=== PATIENT | female | born 1985 | race Caucasian/White ===

== ENCOUNTER → 2019-08-10 | Outpatient (CLI) | payer OTHER ==
--- NOTE | 2019-08-10 13:43 | ER RDC ASSESSMENT REPORT ---
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 - Symptoms Subjective Fever([place] feverish): Yes --How many day(s)?: couple days Chills: Yes Muscule Aches: Yes Runny Nose: Yes Sore Throat: Yes Cough (New or worsening chronic cough): Yes --How many day(s)?: couple days now productive green Shortness of breath: Yes Nausea or Vomiting: Yes Headache: Yes Abdominal Pain: No Diarrhea(3 or more loose stools in last 24 hours): No - Do you have any of the following Chronic lung disease: Asthma or emphysema or COPD: Yes Cystic Fibrosis: No Diabetes: No High Blood Pressure: No Cardiovascular Disease: No Chronic Kidney Disease: No Chronic Liver Disease: No Chronic blood disorder like Sickle Cell Disease: No Weak immune system due to disease or medication: No Neurologic condition that limits movement: No Developmental delay - Moderate to Severe: No Recent (within past 2 weeks) or current : No Morbid Obesity (>100 pounds over ideal weight): No - Objective Temperature: 97.1 F Pulse Rate: 106 Blood Pressure: 109/67 O2 Sat by Pulse Oximetry: 98 Objective: Given above, testing performed: If Testing Performed: Test Specimen Type Sent to Disposition: Home; Selfcare General - General Chief Complaint: Shortness Of Breath Stated Complaint: sore throat cough Time Seen by Provider: 08/10/19 13:46 Information source: Patient Notes: The patient 33-year-old female was evaluated during the global Covid 19 pandemic, and that diagnosis was suspected/considered upon their initial presentation. Their evaluation, treatment and testing was consistent with current guidelines for patients who present with complaints or symptoms that may be related to Covid 19. She complains of shortness of breath subjective fever with chills body aches runny nose sore throat cough congestion's and nausea no vomiting - HPI Onset: Other Onset/Duration: Gradual - 4 days Quality of pain: Achy Severity: Mild Pain Level: 1 Associated symptoms: Body/muscle aches, Chills, Productive cough, Fever, Headache, Rhinnorhea, Shortness of breath, Sore throat Exacerbated by: Coughing Relieved by: Denies Similar symptoms previously: Yes Recently seen / treated by doctor: No - Vital Signs Blood Pressure: 109/67 Temperature: 97.1 F Pulse Rate: 106 O2 Sat by Pulse Oximetry: 98 Past Medical History - General Information source: Patient - Social History Smoking Status: Never Smoker Frequency of alcohol use: None Drug Abuse: None Occupation: Mental health outpatient therapist Lives with: Family Patient has suicidal ideation: No Patient has homicidal ideation: No - Past Medical History Cardiac Medical History: Reports: None Pulmonary Medical History: Reports: Hx Asthma EENT Medical History: Reports: None Neurological Medical History: Reports: None Endocrine Medical History: Reports: None Renal/ Medical History: Reports: None Malignancy Medical History: Reports: None GI Medical History: Reports: None Musculoskeletal Medical History: Reports None Skin Medical History: Reports None Psychiatric Medical History: Reports: None Traumatic Medical History: Reports: None Infectious Medical History: Reports: None Surgical Hx: Negative Past Surgical History: Reports: None Physical Exam - Vital signs Interpretation: Normal - General General appearance: Appears well, Alert - HEENT Head: Normocephalic, Atraumatic Eyes: Normal Pupils: PERRL Nasal: Clear rhinorrhea Mouth/Lips: Normal Mucous membranes: Normal Pharynx: Erythema, Post nasal drainage Neck: Normal - Respiratory Respiratory status: No respiratory distress Chest status: Nontender Breath sounds: Normal Chest palpation: Normal - Cardiovascular Rhythm: Regular Heart sounds: Normal auscultation Murmur: No - Abdominal Inspection: Normal Distension: No distension Bowel sounds: Normal Tenderness: Nontender Organomegaly: No organomegaly - Back Back: Normal, Nontender - Extremities General upper extremity: Normal inspection, Nontender, Normal color, Normal ROM, Normal temperature General lower extremity: Normal inspection, Nontender, Normal color, Normal ROM, Normal temperature, Normal weight bearing. No: Che's sign - Neurological Neuro grossly intact: Yes Cognition: Normal Orientation: AAOx4 Ame Coma Scale Eye Opening: Spontaneous Ame Coma Scale Verbal: Oriented [place] Coma Scale Motor: Obeys Commands Ame Coma Scale Total: 15 Speech: Normal Motor strength normal: LUE, RUE, LLE, RLE Sensory: Normal - Psychological Associated symptoms: Normal affect, Normal mood - Skin Skin Temperature: Warm Skin Moisture: Dry Skin Color: Normal Diagnostic Results Laboratory Results: Influenza A B and strep were negative Covid 19 testing pending Patient Education/Counseling Counseling/Education: Patient was provided with discharge information including: As a person under investigation for Covid 19, the [facility], division of public health advises you to adhere to the following guidance until your test results are reported to you. If your test result is positive, you will receive additional information from your provider and your local health department at that time. Remain at home until you are cleared by the health provider or public health authorities. Keep a log of visitors to your home, notify any visitors to your home of your isolation status. If you plan to move to a new address or leave the county, notify the local health department in your County. Call your doctor or seek care if you have an urgent medical need. Before seeking medical care, call ahead to get instructions from the provider before arriving at the medical office clinic or hospital. Notify them that you are being tested for the virus that causes Covid 19 so that arrangements can be made, as necessary, to prevent transmission to others in the healthcare setting. Next, notify the local health department in your county. If a medical emergency arises and you need to call 911, inform the first responders that you are being tested for the virus that causes Covid 19. Next, notify the local health department in your county. RDC Discharge - Discharge Clinical Impression: Viral respiratory illness, covid 19 testing Condition: Stable Disposition: Home; Selfcare
[2019-08-10 13:48] VITALS: BP 109/67
[2019-08-10 14:10] LABS: A TYPE INFLUENZA AG NEGATIVE (NEGATIVE); B INFLUENZA AG NEGATIVE (NEGATIVE)
== END ==
LOC: RDC 13:08
PROVIDERS: ATTEND Nurse Practitioner Family
DX: B34.9 Viral infection, unspecified (principal); Z20.828 Contact with and (suspected) exposure to other viral communicable diseases; J45.909 Unspecified asthma, uncomplicated; R06.02 Shortness of breath; J02.9 Acute pharyngitis, unspecified; R05 Cough; R50.9 Fever, unspecified; R11.0 Nausea; R51 Headache; M79.10 Myalgia, unspecified site; R09.89 Other specified symptoms and signs involving the circulatory and respiratory systems
CPT/HCPCS: 87070; 87635; 87804; 87880; 99201